=== PATIENT | male | born 1960 | race Two or more races ===

== ENCOUNTER 2024-03-03 10:57 | Inpatient (IN) | payer MEDICAID, OTHER ==
[~2024-03-03] VITALS: Ht 182.9 cm; Wt 71.7 kg
[2024-03-03] MEDS ORDERED: FURO-145 GT (12:10)
[2024-03-03] MEDS ORDERED: TRAM50TA2 GT (12:10)
[2024-03-03] MEDS ORDERED: ALBUT2 IH (12:10)
[2024-03-03] MEDS ORDERED: NA P133E RC (12:10)
[2024-03-03] MEDS ORDERED: DOXA1TAB2 GT (12:10)
[2024-03-03] MEDS ORDERED: MAGN400O6 GT (12:10)
[2024-03-03] MEDS ORDERED: ALBU2.5V38 IH (12:10)
[2024-03-03] MEDS ORDERED: INSU100V39 SQ (12:10)
[2024-03-03] MEDS ORDERED: MULT-213 GT (12:10)
[2024-03-03] MEDS ORDERED: METF-440 GT (12:10)
[2024-03-03] MEDS ORDERED: AMLO5TAB4 GT (12:10)
[2024-03-03] MEDS ORDERED: ARMO150T2 GT (12:10)
[2024-03-03] MEDS ORDERED: INSU100V7 SQ (12:10)
[2024-03-03] MEDS ORDERED: AMIN30LI66 GT (12:10)
[2024-03-03] MEDS ORDERED: NUT.237L31 GT (12:10)
[2024-03-03] MEDS ORDERED: HYDR-4077 GT (12:10)
[2024-03-03] MEDS ORDERED: OLME20TA13 GT (12:10)
[2024-03-03] MEDS ORDERED: FERR220S2 GT (12:10)
[2024-03-03] MEDS ORDERED: ACET160L44 GT (12:10)
[2024-03-03] MEDS ORDERED: EPOE200012 SQ (12:10)
[2024-03-03] MEDS ORDERED: CARV12.5 GT (12:10)
[2024-03-03] MEDS ORDERED: POVI3780 TP (12:10)
[2024-03-03] MEDS ORDERED: ACET160S GT (12:10)
[2024-03-03] MEDS ORDERED: ASCO500L2 GT (12:10)
[2024-03-03] MEDS ORDERED: DOCU100T2 GT (12:10)
[2024-03-03] MEDS ORDERED: [UNRECOGNIZED DRUG - CODE] GT (12:10)
[2024-03-03] MEDS ORDERED: PANT40TA2 GT (12:10)
[2024-03-03] MEDS ORDERED: ATOR40TA GT (12:10)
[2024-03-03] MEDS ORDERED: ASPI-1169 GT (12:10)
[2024-03-03] MEDS ORDERED: CHLO473M2 MM (12:10)
[2024-03-03 12:20] LABS: INR 1.11 (0.91-1.10); PROTHROMBIN TIME 11.7 SECS (9.2-11.1)
[2024-03-03 12:30] LABS: ALANINE AMINOTRANSFERASE 10 U/L (12-78); ALKALINE PHOSPHATASE 111 U/L (46-116); ASPARTATE AMINOTRANSFERASE 15 U/L (15-37); BILIRUBIN,DIRECT 0.1 mg/dL (0.0-0.2); BILIRUBIN,TOTAL 0.2 mg/dL (0.2-1.0); CALCIUM, SERUM 8.6 mg/dL (8.5-10.1); CARBON DIOXIDE 30 mmol/L (21-32); CHLORIDE 99 mmol/L (98-107); CREATININE 1.2 mg/dL (0.6-1.3); GLUCOSE 138 mg/dL (74-106); POTASSIUM 5.3 mmol/L (3.5-5.1); SODIUM SERUM 135 mmol/L (136-145); TOTAL PROTEIN, SERUM 6.6 g/dL (6.4-8.2); UREA NITROGEN, BLOOD 45 mg/dL (7-18)
[2024-03-03 12:31] LABS: LACTIC ACID 1.9 mmol/L (0.4-2.0)
[2024-03-03 12:34] LABS: ALBUMIN 1.3 g/dL (3.4-5.0)
[2024-03-03 12:37] LABS: BASOPHILS % (AUTO) 0.3 % (0.0-2.0); EOSINOPHILS # (AUTO) 0.2 K/uL (0.0-0.7); EOSINOPHILS % (AUTO) 1.4 % (0.0-6.0); HEMATOCRIT 24 % (39-51); HEMOGLOBIN 7.6 g/dL (13.5-17.5); LYMPHOCYTES % (AUTO) 8.6 % (20.0-44.0); MEAN CORPUSCULAR HEMOGLOBIN 23 PG (26.0-33.0); MEAN CORPUSCULAR HGB CONC 31 g/dl (31.0-36.0); MEAN CORPUSCULAR VOLUME 74 fL (80-96); MONOCYTES # (AUTO) 0.9 K/uL (0.1-1.30); MONOCYTES % (AUTO) 7.7 % (2.0-12.0); NEUTROPHILS # (AUTO) 9.4 K/uL (1.8-8.9); PLATELET COUNT (AUTO) 428 K/uL (150-450); RED BLOOD CELL COUNT(AUTO) 3.29 MIL/uL (4.5-6.0); RED CELL DISTRIBUTION WIDTH 22.3 % (11.5-15.0); WHITE BLOOD COUNT (AUTO) 11.5 K/uL (4.3-11.0)
[2024-03-03] MEDS: IV NS 0.9% 1,000 ML BAG IV ONE (12:41)
[2024-03-03] MEDS: PIPERACILLIN /TAZOBACTAM 3.375 G in IV D5W 50 ML IV ONE (12:48)
[2024-03-03] MEDS: VANCOMYCIN 1 GM in IV D5W 250 ML IV ONE (13:23)
[2024-03-03 14:54] LABS: APPEARANCE,URINE Clear (CLEAR); BILIRUBIN,URINE Negative (NEGATIVE); BLOOD, URINE Negative Ery/uL (NEGATIVE); COLOR,URINE YELLOW (YELLOW); KETONES,URINE Negative (NEGATIVE); LEUKOCYTE ESTERASE ,URINE Negative (NEGATIVE); NITRITE, URINE Negative (NEGATIVE); PROTEIN,URINE >=300 mg/dl (NEGATIVE); UGLUCOSE Negative (NEGATIVE); UROBILINOGEN,URINE 0.2 EU/dL (0.2)
[2024-03-03 15:53] VITALS: BP 144/66; TEMP 98.6; O2SAT 99
[2024-03-03 16:00] VITALS: BP 144/66; TEMP 98.6; O2SAT 99
[2024-03-03 16:56] LABS: ADD URINE CULTURE NO; BACTERIA,URINE Rare /HPF (None Seen); HYALINE CASTS, URINE Few /LPF (None Seen); SQUAMOUS EPITHELIAL CELL,UR Rare /HPF (None Seen); WBC,URINE 0-2 /HPF (0-3)
[2024-03-03] MEDS ORDERED: Z GUARD REMEDY 4 OZ OINT TP PRN (17:00)
[2024-03-03] MEDS ORDERED: CEFEPIME 1 GM in IV D5W 50 ML IV SCH (17:00)
[2024-03-03] MEDS ORDERED: NA PHOS,M-B/NA PHOS,DI-BA 1 EA ENEMA RC PRN (17:00)
[2024-03-03] MEDS ORDERED: MAGNESIUM HYDROXIDE 30 ML UDC PO PRN (17:00)
[2024-03-03] MEDS ORDERED: ACETAMINOPHEN 160 MG/5 ML GT PRN (17:00)
[2024-03-03] MEDS ORDERED: ACETAMINOPHEN 325 MG TABLET PO PRN (17:00)
[2024-03-03] MEDS ORDERED: ONDANSETRON HCL/PF 4 MG/2 ML VIAL IVP PRN (17:00)
[2024-03-03] MEDS ORDERED: Medication Not On Formulary EA (Acetaminophen 20 ML) GT PRN (17:00)
[2024-03-03] MEDS ORDERED: MAGNESIUM HYDROXIDE 30 ML UDC GT PRN (17:00)
[2024-03-03] MEDS ORDERED: ZOLPIDEM TARTRATE 5 MG TABLET PO PRN (17:00)
[2024-03-03] MEDS ORDERED: ENOXAPARIN SODIUM 40 MG/0.4 ML DISP.SYRIN SQ SCH (17:00)
[2024-03-03] MEDS ORDERED: MAG HYDROX/AL HYDROX/SIMETH 30 ML UDC PO PRN (17:00)
[2024-03-03] MEDS ORDERED: ALBUTEROL FS 2.5 MG/3 ML VIAL.NEB IH PRN (17:00)
[2024-03-03] MEDS: ACETAMINOPHEN 650 MG/20.3 ML UDC GT PRN (17:48)
[2024-03-03] MEDS: CARVEDILOL 12.5 MG TABLET GT SCH (17:48)
[2024-03-03] MEDS: INSULIN GLARGINE, 100 UNIT/ML CARTRIDGE SQ SCH (17:50)
[2024-03-03] MEDS: BLOOD SUGAR DIAGNOSTIC 1 EACH STRIP IN SCH (18:29)
[2024-03-03] MEDS: GLUCERNA 1.5 1,000 ML BOTTLE GT PRN (19:44)
[2024-03-03 20:00] VITALS: BP 109/54; TEMP 98.1; O2SAT 100
[2024-03-03] MEDS: ALBUTEROL FS 2.5 MG/3 ML VIAL.NEB IH SCH (20:05)
[2024-03-03] MEDS: TRAMADOL HCL 50 MG TABLET GT PRN (20:30)
[2024-03-03] MEDS: CEFEPIME 2 GM in IV D5W 100 ML IV SCH (21:22)
[2024-03-03] MEDS: METFORMIN 500 MG TABLET GT SCH (21:22)
[2024-03-03] MEDS: CHLORHEXIDINE GLUCONATE 15 ML UDC MM SCH (21:22)
[2024-03-04] VITALS (7 sets, daily range): BP systolic 132–144; BP diastolic 55–68; TEMP 97.7–98.6; O2SAT 99–100
[2024-03-04] MEDS: ATORVASTATIN 40 MG TABLET GT SCH (00:38)
[2024-03-04] MEDS: VANCOMYCIN 750 MG in IV D5W 250 ML IV SCH (00:54)
[2024-03-04] MEDS: INSULIN REGULAR, HUMAN 100 UNIT/ML 3 ML VIAL SQ PRN (05:55)
[2024-03-04] MEDS ORDERED: PANTOPRAZOLE 40 MG TABLET.DR PO SCH (07:30)
[2024-03-04 07:43] LABS: BASOPHILS % (AUTO) 0.4 % (0.0-2.0); EOSINOPHILS # (AUTO) 0.2 K/uL (0.0-0.7); EOSINOPHILS % (AUTO) 2.3 % (0.0-6.0); HEMATOCRIT 23 % (39-51); HEMOGLOBIN 7.2 g/dL (13.5-17.5); LYMPHOCYTES # (AUTO) 0.9 K/uL (0.8-4.8); LYMPHOCYTES % (AUTO) 8.8 % (20.0-44.0); MEAN CORPUSCULAR HEMOGLOBIN 23 PG (26.0-33.0); MEAN CORPUSCULAR HGB CONC 32 g/dl (31.0-36.0); MEAN CORPUSCULAR VOLUME 73 fL (80-96); MONOCYTES % (AUTO) 9.7 % (2.0-12.0); NEUTROPHILS % (AUTO) 78.8 % (43.0-81.0); PLATELET COUNT (AUTO) 439 K/uL (150-450); RED BLOOD CELL COUNT(AUTO) 3.06 MIL/uL (4.5-6.0); RED CELL DISTRIBUTION WIDTH 22.3 % (11.5-15.0); WHITE BLOOD COUNT (AUTO) 10.2 K/uL (4.3-11.0)
[2024-03-04 07:53] LABS: CALCIUM, SERUM 8.2 mg/dL (8.5-10.1); CREATININE 1.1 mg/dL (0.6-1.3); POTASSIUM 4.8 mmol/L (3.5-5.1)
[2024-03-04] MEDS: MODAFINIL 100 MG TABLET PO SCH (08:36)
[2024-03-04] MEDS: DOXAZOSIN MESYLATE (1 MG) 1 MG TABLET GT SCH (08:37)
[2024-03-04] MEDS: MULTIVIT W/MINERALS 1 TAB TABLET GT SCH (08:37)
[2024-03-04] MEDS: PANTOPRAZOLE 40 MG/PACK PACK GT SCH (08:37)
[2024-03-04] MEDS: FUROSEMIDE 20 MG TABLET GT SCH (08:37)
[2024-03-04] MEDS: FERROUS SULFATE UDC 300 MG/5 ML UDC GT SCH (08:37)
[2024-03-04] MEDS: ASPIRIN 81 MG TAB.CHEW GT SCH (08:37)
[2024-03-04] MEDS: ASCORBIC ACID 500 MG TABLET GT SCH (08:37)
[2024-03-04] MEDS: AMLODIPINE BESYLATE 5 MG TABLET GT SCH (08:37)
[2024-03-04] MEDS: DOCUSATE SODIUM LIQ 100 MG/10 ML UDC GT SCH (08:37)
[2024-03-04] MEDS ORDERED: LOSARTAN POTASSIUM 50 MG TABLET GT SCH (09:00)
[2024-03-04] MEDS ORDERED: ARMODAFINIL 150 MG GT SCH (09:00)
[2024-03-04] MEDS ORDERED: Medication Not On Formulary EA (Amino AC/Protein Hydr/Whey Pro (Liquacel Liquid Protein GT SCH (09:00)
[2024-03-04] MEDS: THERAHONEY GEL 1.5 OZ TUBE TP SCH (10:14)
[2024-03-04] MEDS: MISOPROSTOL 100 MCG TABLET GT SCH (13:45)
[2024-03-04] MEDS: FUROSEMIDE 40 MG/4 ML VIAL IV SCH (13:49)
[2024-03-04] MEDS: GLUCERNA 1.2 1,000 ML BOTTLE GT PRN (14:34)
[2024-03-05] VITALS: BP 135/62; TEMP 98.1; O2SAT 100
[2024-03-05 04:00] VITALS: BP 140/60; TEMP 98.4; O2SAT 100
[2024-03-05 08:06] VITALS: BP 136/59; TEMP 98.2; O2SAT 100
[2024-03-05] MEDS: MODAFINIL 100 MG TABLET GT SCH (08:07)
[2024-03-05 08:25] LABS: BASOPHILS % (AUTO) 0.1 % (0.0-2.0); EOSINOPHILS # (AUTO) 0.2 K/uL (0.0-0.7); EOSINOPHILS % (AUTO) 2.2 % (0.0-6.0); HEMATOCRIT 24 % (39-51); HEMOGLOBIN 7.6 g/dL (13.5-17.5); LYMPHOCYTES # (AUTO) 0.8 K/uL (0.8-4.8); LYMPHOCYTES % (AUTO) 7.2 % (20.0-44.0); MEAN CORPUSCULAR HEMOGLOBIN 23 PG (26.0-33.0); MEAN CORPUSCULAR HGB CONC 31 g/dl (31.0-36.0); MEAN CORPUSCULAR VOLUME 72 fL (80-96); MONOCYTES # (AUTO) 0.9 K/uL (0.1-1.30); MONOCYTES % (AUTO) 8.2 % (2.0-12.0); NEUTROPHILS # (AUTO) 9.1 K/uL (1.8-8.9); NEUTROPHILS % (AUTO) 82.3 % (43.0-81.0); PLATELET COUNT (AUTO) 410 K/uL (150-450); RED BLOOD CELL COUNT(AUTO) 3.37 MIL/uL (4.5-6.0); RED CELL DISTRIBUTION WIDTH 21.9 % (11.5-15.0)
[2024-03-05 08:36] LABS: CALCIUM, SERUM 8.7 mg/dL (8.5-10.1); CREATININE 1.3 mg/dL (0.6-1.3); POTASSIUM 4.6 mmol/L (3.5-5.1)
[2024-03-05 09:52] LABS: THYROID STIMULATING HORMONE 2.31 uIU/mL (0.358-3.74)
[2024-03-05 11:00] LABS: ANISOCYTOSIS 1+; EOSINOPHILS % (MANUAL) 1 % (0-4); LYMPHOCYTES % (MANUAL) 5 % (16-48); MONOCYTES % (MANUAL) 7 % (0-11.0); NEUTROPHILS % (MANUAL) 87 (42-76); PLATELET ESTIMATE ADEQUATE
[2024-03-05 11:01] LABS: HYPOCHROMASIA 1+
[2024-03-05 12:00] VITALS: BP 138/57; TEMP 98.4; O2SAT 100
[2024-03-05] MEDS: VANCOMYCIN 1 GM in IV D5W 250ml IV SCH (13:49)
[2024-03-05 16:00] VITALS: BP 127/52; TEMP 98.2; O2SAT 100
[2024-03-05 20:00] VITALS: BP 127/54; TEMP 98.6; O2SAT 100
[2024-03-06] VITALS (11 sets, daily range): BP systolic 141–155; BP diastolic 52–99; TEMP 96.8–98.6; O2SAT 100
[2024-03-06] MEDS: DEXTROSE 50%-WATER 50 ML DISP.SYRIN IV PRN (01:13)
[2024-03-06 07:59] LABS: CALCIUM, SERUM 8.6 mg/dL (8.5-10.1); CREATININE 1.2 mg/dL (0.6-1.3)
[2024-03-06 11:56] LABS: INR 1.1 (0.91-1.10); PROTHROMBIN TIME 11.6 SECS (9.2-11.1)
[2024-03-06] MEDS: SOD FERRIC GLUC 125 MG in IV NS 0.9% 100 ML IV SCH (13:34)
[2024-03-07] VITALS (11 sets, daily range): BP systolic 126–156; BP diastolic 51–81; TEMP 97.5–98.3; O2SAT 98–100
[2024-03-07] MEDS: IV NS 0.9% 1,000 ML IV SCH (06:08)
[2024-03-07 06:42] LABS: BASOPHILS % (AUTO) 0.2 % (0.0-2.0); EOSINOPHILS # (AUTO) 0.3 K/uL (0.0-0.7); EOSINOPHILS % (AUTO) 3.9 % (0.0-6.0); HEMATOCRIT 26 % (39-51); HEMOGLOBIN 8.3 g/dL (13.5-17.5); LYMPHOCYTES # (AUTO) 1.2 K/uL (0.8-4.8); LYMPHOCYTES % (AUTO) 13.8 % (20.0-44.0); MEAN CORPUSCULAR HEMOGLOBIN 24 PG (26.0-33.0); MEAN CORPUSCULAR HGB CONC 32 g/dl (31.0-36.0); MEAN CORPUSCULAR VOLUME 74 fL (80-96); MONOCYTES # (AUTO) 0.8 K/uL (0.1-1.30); MONOCYTES % (AUTO) 10.1 % (2.0-12.0); PLATELET COUNT (AUTO) 398 K/uL (150-450); RED BLOOD CELL COUNT(AUTO) 3.52 MIL/uL (4.5-6.0); RED CELL DISTRIBUTION WIDTH 21.9 % (11.5-15.0); WHITE BLOOD COUNT (AUTO) 8.4 K/uL (4.3-11.0)
[2024-03-07 06:46] LABS: CALCIUM, SERUM 8.5 mg/dL (8.5-10.1); CREATININE 1.1 mg/dL (0.6-1.3); POTASSIUM 4.5 mmol/L (3.5-5.1)
[2024-03-07] MEDS ORDERED: POLYMYXIN B SULFATE 0 UNITS ONE (08:11)
[2024-03-07] MEDS ORDERED: ROPIVACAINE HCL 0.5% 5 MG/ML 30ML VIAL ONE (08:11)
[2024-03-07] MEDS ORDERED: LIDOCAINE HCL/MPF 1% 30 ML VIAL IJ ONE (08:11)
[2024-03-07] MEDS: HYDROMORPHONE 1 MG/1 ML DISP.SYRIN IV PRN (09:14)
[2024-03-07] MEDS ORDERED: ANESTHESIA TRAY IN PYXIS 1 EA TRAY MC ONE (14:34)
[2024-03-07] MEDS ORDERED: MIDAZOLAM HCL 2 MG/2ML VIAL ONE (14:46)
[2024-03-07] MEDS ORDERED: HYDROMORPHONE INJ 2 MG/ML DISP.SYRIN ONE (14:46)
[2024-03-07 20:07] LABS: BASOPHILS % (AUTO) 0.5 % (0.0-2.0); EOSINOPHILS # (AUTO) 0.3 K/uL (0.0-0.7); EOSINOPHILS % (AUTO) 4.2 % (0.0-6.0); HEMATOCRIT 30 % (39-51); HEMOGLOBIN 9.5 g/dL (13.5-17.5); LYMPHOCYTES # (AUTO) 1.2 K/uL (0.8-4.8); LYMPHOCYTES % (AUTO) 15.6 % (20.0-44.0); MEAN CORPUSCULAR HEMOGLOBIN 24 PG (26.0-33.0); MEAN CORPUSCULAR HGB CONC 32 g/dl (31.0-36.0); MEAN CORPUSCULAR VOLUME 76 fL (80-96); MONOCYTES # (AUTO) 0.9 K/uL (0.1-1.30); MONOCYTES % (AUTO) 11.9 % (2.0-12.0); NEUTROPHILS # (AUTO) 5.3 K/uL (1.8-8.9); NEUTROPHILS % (AUTO) 67.8 % (43.0-81.0); PLATELET COUNT (AUTO) 378 K/uL (150-450); RED BLOOD CELL COUNT(AUTO) 3.91 MIL/uL (4.5-6.0); RED CELL DISTRIBUTION WIDTH 21.6 % (11.5-15.0); WHITE BLOOD COUNT (AUTO) 7.8 K/uL (4.3-11.0)
[2024-03-07 20:16] LABS: POTASSIUM 4.5 mmol/L (3.5-5.1)
[2024-03-08] VITALS (7 sets, daily range): BP systolic 141–168; BP diastolic 61–78; TEMP 97.7–98.8; O2SAT 95–99
[2024-03-08] MEDS: IV NS 0.9% 1,000 ML IV PRN (04:17)
[2024-03-08 09:14] LABS: CALCIUM, SERUM 8.1 mg/dL (8.5-10.1); CREATININE 1.1 mg/dL (0.6-1.3); POTASSIUM 4.5 mmol/L (3.5-5.1)
[2024-03-08] MEDS: VANCOMYCIN 1 GM in IV D5W 250ml IV SCH (13:26)
[2024-03-08 15:15] LABS: APPEARANCE,SPUN,BODY FLUID CLEAR (CLEAR); TOTAL VOLUME,BODY FLUID 1200 mL
[2024-03-08 15:42] LABS: WBC, BODY FLUID 180 /cu. mm. (0-200)
[2024-03-08 16:17] LABS: PROTEIN, BODY FLUID 2.7 G/DL
[2024-03-08] MEDS: hydrALAZINE HCL 50 MG TABLET GT PRN (16:41)
[2024-03-08] MEDS: ENOXAPARIN SODIUM 40 MG/0.4 ML DISP.SYRIN SQ SCH (16:43)
[2024-03-08 16:53] LABS: MACROPHAGES, BODY FLUID 79; POLYNUCLEAR, BODY FLUID 1 % (0-25)
[2024-03-09] VITALS: BP 136/60; TEMP 99.1; O2SAT 98
[2024-03-09 04:00] VITALS: BP 148/62; TEMP 99.1; O2SAT 95
[2024-03-09 06:29] LABS: BASOPHILS % (AUTO) 0.3 % (0.0-2.0); EOSINOPHILS % (AUTO) 0.2 % (0.0-6.0); HEMATOCRIT 28 % (39-51); HEMOGLOBIN 8.9 g/dL (13.5-17.5); LYMPHOCYTES # (AUTO) 0.9 K/uL (0.8-4.8); LYMPHOCYTES % (AUTO) 6.3 % (20.0-44.0); MEAN CORPUSCULAR HEMOGLOBIN 24 PG (26.0-33.0); MEAN CORPUSCULAR HGB CONC 32 g/dl (31.0-36.0); MEAN CORPUSCULAR VOLUME 76 fL (80-96); MONOCYTES # (AUTO) 1.1 K/uL (0.1-1.30); MONOCYTES % (AUTO) 8.2 % (2.0-12.0); NEUTROPHILS # (AUTO) 11.9 K/uL (1.8-8.9); PLATELET COUNT (AUTO) 383 K/uL (150-450); RED CELL DISTRIBUTION WIDTH 21.8 % (11.5-15.0)
[2024-03-09 06:36] LABS: CALCIUM, SERUM 7.8 mg/dL (8.5-10.1); CREATININE 1.2 mg/dL (0.6-1.3); POTASSIUM 4.1 mmol/L (3.5-5.1)
[2024-03-09 08:00] VITALS: BP 145/61; TEMP 99.7; O2SAT 98
[2024-03-09 12:00] VITALS: BP 145/51; TEMP 100; O2SAT 100
[2024-03-09 16:00] VITALS: BP 144/51; TEMP 98.5; O2SAT 100
[2024-03-09 20:00] VITALS: BP 141/59; TEMP 97.9; O2SAT 99
[2024-03-10] VITALS: BP 134/62; TEMP 98.6; O2SAT 99
[2024-03-10 04:00] VITALS: BP 142/63; TEMP 98.7; O2SAT 96
[2024-03-10 06:40] LABS: BASOPHILS % (AUTO) 0.3 % (0.0-2.0); EOSINOPHILS # (AUTO) 0.1 K/uL (0.0-0.7); EOSINOPHILS % (AUTO) 0.6 % (0.0-6.0); HEMATOCRIT 24 % (39-51); HEMOGLOBIN 7.8 g/dL (13.5-17.5); LYMPHOCYTES # (AUTO) 1.1 K/uL (0.8-4.8); LYMPHOCYTES % (AUTO) 9.9 % (20.0-44.0); MEAN CORPUSCULAR HEMOGLOBIN 25 PG (26.0-33.0); MEAN CORPUSCULAR HGB CONC 32 g/dl (31.0-36.0); MEAN CORPUSCULAR VOLUME 76 fL (80-96); MONOCYTES % (AUTO) 9.1 % (2.0-12.0); NEUTROPHILS % (AUTO) 80.1 % (43.0-81.0); PLATELET COUNT (AUTO) 363 K/uL (150-450); RED BLOOD CELL COUNT(AUTO) 3.19 MIL/uL (4.5-6.0); RED CELL DISTRIBUTION WIDTH 21.6 % (11.5-15.0); WHITE BLOOD COUNT (AUTO) 11.2 K/uL (4.3-11.0)
[2024-03-10 07:16] LABS: CALCIUM, SERUM 8.5 mg/dL (8.5-10.1); CREATININE 1.3 mg/dL (0.6-1.3)
[2024-03-10] MEDS ORDERED: CEPH250S PO (07:55)
[2024-03-10 08:00] VITALS: BP 149/63; TEMP 99; O2SAT 96
[2024-03-10] MEDS: FUROSEMIDE 40 MG/4 ML VIAL IV ONE (08:33)
[2024-03-10] MEDS: VANCOMYCIN 1 GM in IV D5W 250ml IV SCH (11:08)
[2024-03-10 12:00] VITALS: BP 134/75; TEMP 98.8; O2SAT 96
[2024-03-11] MEDS ORDERED: VANCOMYCIN 750 MG in IV D5W 250 ML IV SCH (23:00)
== END 2024-03-10 16:20 | DRG 305 ==
LOC: ER 11:04 → TELE1 14:33
PROVIDERS: ADMIT Student in an Organized Health Care Education/Training Program; ATTEND Internal Medicine
PROC: 5A1955Z Respiratory Ventilation, Greater than 96 Consecutive Hours (ICD-10-PCS; principal; 2024-03-03)
PROC: 30233N1 Transfusion of Nonautologous Red Blood Cells into Peripheral Vein, Percutaneous Approach (ICD-10-PCS; 2024-03-06)
PROC: 0Y6J0Z1 Detachment at Left Lower Leg, High, Open Approach (ICD-10-PCS; 2024-03-07)
PROC: 0W993ZX Drainage of Right Pleural Cavity, Percutaneous Approach, Diagnostic (ICD-10-PCS; 2024-03-08)
PROC: 0W9B3ZX Drainage of Left Pleural Cavity, Percutaneous Approach, Diagnostic (ICD-10-PCS; 2024-03-10)
PROC: 0KBP0ZZ Excision of Left Hip Muscle, Open Approach (ICD-10-PCS; 2024-03-10)
PROC: 0KBN0ZZ Excision of Right Hip Muscle, Open Approach (ICD-10-PCS; 2024-03-10)
DX: E11.52 Type 2 diabetes mellitus with diabetic peripheral angiopathy with gangrene (principal); L89.153 Pressure ulcer of sacral region, stage 3; J96.10 Chronic respiratory failure, unspecified whether with hypoxia or hypercapnia; I96 Gangrene, not elsewhere classified; I69.354 Hemiplegia and hemiparesis following cerebral infarction affecting left non-dominant side; Z99.11 Dependence on respirator [ventilator] status; Z93.0 Tracheostomy status; L97.424 Non-pressure chronic ulcer of left heel and midfoot with necrosis of bone; L89.890 Pressure ulcer of other site, unstageable; G51.0 Bell's palsy; E11.40 Type 2 diabetes mellitus with diabetic neuropathy, unspecified; L03.116 Cellulitis of left lower limb; D50.9 Iron deficiency anemia, unspecified; L97.524 Non-pressure chronic ulcer of other part of left foot with necrosis of bone; E11.621 Type 2 diabetes mellitus with foot ulcer; K21.9 Gastro-esophageal reflux disease without esophagitis; R13.10 Dysphagia, unspecified; E78.5 Hyperlipidemia, unspecified; Z93.1 Gastrostomy status; I50.42 Chronic combined systolic (congestive) and diastolic (congestive) heart failure; I11.0 Hypertensive heart disease with heart failure; L60.3 Nail dystrophy; Z79.4 Long term (current) use of insulin; Z79.84 Long term (current) use of oral hypoglycemic drugs; Z79.82 Long term (current) use of aspirin; Z79.51 Long term (current) use of inhaled steroids; Z79.899 Other long term (current) drug therapy; Z87.891 Personal history of nicotine dependence; Z74.01 Bed confinement status
CPT/HCPCS: 31720; 36415; 71045-TC; 71250-TC; 73630-TC; 80048-TC; 80076-TC; 80202-TC; 81001; 82962-TC; 83540-TC; 83605-TC; 83880; 84443-TC; 84484-TC; 85025-TC; 85610-TC; 85652-TC; 85730-TC; 86140-TC; 86850-TC; 87040-TC; 87086-TC; 87102-TC; 89051-TC; 93307-TC; 94002-TC; 94003-TC; 94760-TC; 94762-TC; 94799-TC; 97110-TC; 99082-TC; A4223; A6403; G0378; J0690; J0692; J1100; J1170; J1171; J1650; J1815; J1940; J2250; J2405; J2543; J2704; J2765; J2795; J2916; J3370; J3371; J3490; J7030; J7050; J7060; L1830; P9016